=== PATIENT | male | born 1985 | race Caucasian/White ===

== ENCOUNTER 2022-07-13 10:55 | Emergency (ER) | payer BC, OTHER ==
[2022-07-13] MEDS ORDERED: Lidocaine 2% 11 ML Jelly Filled Syringe MUCMEM ONE (13:40)
== END 2022-07-13 14:30 | disposition home or self-care (01) ==
LOC: JD.ED 10:55
DX: K62.5 Hemorrhage of anus and rectum (principal); K59.01 Slow transit constipation; Z79.899 Other long term (current) drug therapy
CPT/HCPCS: 45330; 74018; 99284; A9270